=== PATIENT | female | born 2000 | race Caucasian/White ===

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

== ENCOUNTER 2022-01-06 15:16 | Outpatient (CLI) | payer OTHER, SELFPAY ==
[2022-01-06 16:29] LABS: Alanine Aminotransferase 25 U/L (14-59); Albumin Level 3.8 g/dL (3.4-5.0); Alkaline Phosphatase 119 U/L (50-130); Anion Gap 5 mmol/L (8-16); Aspartate Amino Transferase 19 U/L (15-37); Bilirubin,Total 0.2 mg/dL (0.00-1.00); Blood Urea Nitrogen 12 mg/dL (7-18); Carbon Dioxide 28 mmol/L (21-32); Chloride 104 mmol/L (98-108); Estimated Glomerular Filt Rate > 60; Free T4 Free Thyroxine 1.02 ng/dL (0.76-1.46); Glucose 86 mg/dL (70-99); Osmolality Calculated 282 mOsm/kg (285-295); Potassium 4.2 mmol/L (3.5-5.1); Sodium 137 mmol/L (136-145); Total Protein 7.5 g/dL (6.4-8.2)
== END 2022-01-06 15:17 | disposition home or self-care (01) ==
LOC: CHSLAB 15:18
PROVIDERS: PCP Nurse Practitioner Family; Visit Provider Nurse Practitioner Family
DX: R63.5 Abnormal weight gain (principal)
CPT/HCPCS: 36415; 80053; 84439; 84443

== ENCOUNTER 2023-04-26 17:51 | Emergency (ER) | payer OTHER, SELFPAY ==
[2023-04-26 18:03] VITALS: BP 106/87; PULSE 115; RESP 24; TEMP 36.4; O2SAT 100
[2023-04-26] MEDS: ONDANSETRON HCL ODT 4 MG TABLET SUBLINGUAL (18:37)
--- NOTE | 2023-04-26 18:38 | ED.GENADULT ---
HPI - General Adult General Chief complaint: Abdominal Pain Stated complaint: Sore throat, vomiting, abdominal pain Time Seen by Provider: 04/26/23 18:19 Source: patient Mode of arrival: ambulatory Limitations: no limitations History of Present Illness HPI narrative: Patient presents today complaining of sore throat, headache, ear pain, congestion, fever, diarrhea. States symptoms began last week, resolved, then worsened again a few days ago. She also reports abdominal pain 5 days ago that has been constant since onset and is worse when she is sitting. Vomiting started last night. States she has vomited more times than she can count and has vomited up, ?clots of blood. ? She currently rates her pain 9/10 and has been taking Tylenol with some relief. Patient was exposed to strep throat last week and started amoxicillin without a positive test. She has had 2 doses so far and states no improvement in her sore throat symptoms. Related Data Allergies Allergy/AdvReac Type Severity Reaction Status Date / Time carrot Allergy Swelling Verified 03/30/23 11:23 of Lip/Tongue/Throat Review of Systems Review of Systems: CONSTITUTIONAL: Denies body aches, chills, or sweats.+ fever EYES: Denies visual changes, redness, or discharge. ENT: Denies rhinorrhea. + congestion, sore throat, ear pain CARDIOVASCULAR: Denies chest pain, palpitations, or edema. RESPIRATORY: Denies cough or dyspnea. GASTROINTESTINAL: + abdominal pain, nausea, vomiting, diarrhea GENITOURINARY: Denies dysuria or hematuria. SKIN: Denies rash, itching, or wounds. MUSCULOSKELETAL: Denies back pain, joint pain, or myalgia. NEUROLOGIC: Denies numbness, tingling, or weakness.+ headache PSYCH: Denies depression or anxiety. [facility] Past Medical History Medical History ADHD (attention deficit hyperactivity disorder) Depression (Unknown) HARRIET (generalized anxiety disorder) Sprain and strain of wrist Surgical History Surgical History S/P laparoscopic appendectomy Social History Social History Smoking status: Never smoker Alcohol intake: never Substance use: never Substance use type: does not use Living arrangements: with family Gender identity (if verbalized by the patient): Female Spiritual care concerns: No Comments At time of signature, I have reviewed and agree with nursing past medical, surgical, social and family history unless otherwise noted. Please see nursing chart for further information. There is no relevant family history pertinent to the presenting complaint Exam Narrative: GENERAL: Mildly ill-appearing, well-nourished, and in no acute distress. HEAD: Normocephalic, atraumatic. EYES: EOMI. No redness or drainage. Conjunctivae normal. ENT: Mucous membranes pink and moist. Nares clear. No rhinorrhea. TMs normal bilaterally. Throat 1 to 2+ with white exudate. Uvula midline. NECK: Normal AROM. Supple. No lymphadenopathy. CHEST: Clear to auscultation. Tachypneic. HEART: Regular rhythm. Tachycardia. no murmur appreciated. ABDOMEN: Soft, nondistended, normal active bowel sounds. + tenderness to right upper quadrant. EXTREMITIES: Normal range of motion. No edema. SKIN: Warm, dry, no rash. Capillary refill normal. Normal skin turgor. NEURO: No focal deficits. Alert and oriented x3. Gait steady. PSYCH: Normal affect. No signs of depression or anxiety. Course Course Level of Care: Express Care Visit Vital Signs Vital signs: Vital Signs Temperature 97.6 F 04/26/23 18:03 Pulse Rate 115 H 04/26/23 18:03 Respiratory Rate 24 H 04/26/23 18:03 Blood Pressure 106/87 04/26/23 18:03 Pulse Oximetry 100 04/26/23 18:03 Oxygen Delivery Room Air 04/26/23 18:03 Temperature 97.6 F 04/26/23 18:03 Pulse Rate 115 H 02
== END 2023-04-26 18:39 | disposition short-term general hospital (02) ==
PROVIDERS: Emergency Provider Nurse Practitioner; PCP Nurse Practitioner Family
DX: R10.11 Right upper quadrant pain (principal); R11.2 Nausea with vomiting, unspecified
CPT/HCPCS: 99213; A9270; G0463

== ENCOUNTER 2023-04-26 18:57 | Emergency (ER) | payer OTHER, SELFPAY ==
--- NOTE | ~2023-04-26 | CT_ITS ---
CT of the Abdomen and Pelvis: Indication: Abdominal pain Technique: 2.5 mm axial scans were obtained through the abdomen and pelvis following intravenous adm inistration of 100 cc of Omnipaque 350. Dose reduction technique was used on this scan by utilizing a utomated exposure control and iterative reconstruction technique. The dose-length product (DLP) was 3 14.53 mGy-cm. COMPARISON: 04/21/2020 Findings: Scans through the lung bases are unremarkable. The liver, spleen, pancreas, gallbladder, adrenals and right kidney are within normal limits. 1.3 cm mass of the left kidney is increased in size from prior exam (axial image 47). No evidence of aortic aneurysm. No lymphadenopathy. No bowel obstruction or bowel wall thickening. There is no evidence to suggest acute appendicitis. Images through the pelvis were performed. Urinary bladder unremarkable. No adnexal mass seen. No asci emmanuel. Impression: 1.3 cm noncystic left renal masses increase in size from prior exam. Small renal cell carcinoma is no t excluded. Recommend pre and postcontrast MR, or possibly ultrasound, to distinguish between solid l esion and complex cyst. Reviewed, dictated and finalized at [facility]. 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 Small brandin l cell carcinoma is not excluded. Recommend pre and postcontrast MR, or possibl y ultrasound, to distinguish between solid lesion and complex cyst.
[2023-04-26 19:14] VITALS: BP 112/64; PULSE 80; RESP 15; TEMP 36.4; O2SAT 100
[2023-04-26 20:31] LABS: Appearance Urine Clear (Clear); Bacteria Urine None Seen /hpf; Bilirubin Urine Negative (Negative); Blood Urine 2+ (Negative); Color Urine Yellow (Yellow); Glucose Urine UA Negative (Negative); Ketones Urine 1+ mg/dL (Negative); Leukocyte Esterase Ur Negative LEU/UL (Negative); Nitrate Urine Negative (Negative); Non Pathogenic Casts 0-2; Protein Urine Negative (Negative); Specific Grav Ur 1.016 (1.001-1.035); Squamous Epithelial Cell Urine Few /hpf (Few); Urobilinogen Urine 0.2 mg/dL (<2.0); WBC Urine 0-5 /hpf
[2023-04-26 20:40] LABS: Add Urine Microscopic? YES
[2023-04-26 22:36] LABS: Basophils Percent Auto 0.3 % (0.2-1.2); Eosinophils Percent Auto 0.4 % (0-4.4); Hematocrit 35.4 % (37.0-47.0); Hemoglobin 11.6 g/dL (12.0-15.0); Immature Granulocyte Absolute 0.02 K/mm3 (0.00-0.031); Immature Granulocyte Percent A 0.3 % (0-0.5); Lymphocytes Absolute Auto 1.36 K/mm3 (0.9-3.2); Lymphocytes Percent Auto 17.8 % (18.3-44.2); Mean Corpuscular HGB Conc 32.8 g/dl (32-36); Mean Corpuscular Hemoglobin 28.9 pg (26-34); Mean Corpuscular Volume 88.1 fl (80-100); Mean Platelet Volume 9.1 fl (7.4-10.4); Monocytes Absolute Auto 0.4 K/mm3 (0.1-0.6); Monocytes Percent Auto 4.6 % (2.6-8.5); Neutrophils Absolute Auto 5.9 K/mm3 (1.3-6.7); Neutrophils Percent Auto 76.6 % (45.5-73.1); Platelet Count Result 232 k/mm3 (150-375); Red Blood Count 4.02 M/mm3 (4.2-5.4); Red Cell Distribution Width 12.8 % (11.5-14.5); White Blood Count 7.6 K/mm3 (4.5-10.0)
--- NOTE | 2023-04-26 22:42 | ECG_ITS ---
Measurements Intervals [place] Rate: 67 P: 71 CA: 191 QRS: 83 QRSD: 94 T: 64 QT: 386 QTc: 409 Interpretive Statements SINUS RHYTHM NO PREVIOUS ECG AVAILABLE FOR COMPARISON Electronically Signed On 04-27-2023 12:38:22 [employer] by Fernando Arango M.D.
--- NOTE | 2023-04-26 22:44 | ED.ABDPAIN ---
HPI - Abdominal Pain General Chief Complaint: Abdominal Pain Stated Complaint: RUQ pain, vomitting Time Seen by Provider: 04/26/23 21:59 Source: patient and family Limitations: no limitations History of Present Illness HPI narrative: Patient is a 22-year-old female presents to the emergency department complaining abdominal pain. Patient states the pain started Monday evening in the epigastric region and then Monday evening she to be on both of her upper quadrants and show her to have back is well, patient notes that the pain comes and goes, comes on with movement and is better with rest, describes the pain as squeezing, denies any stress in the past, admits to associated nausea starting yesterday and had a couple episodes of nonbloody nonbilious emesis this morning. Patient denies diarrhea. Patient denies sick contacts. Patient denies fever, chest pain, difficulty breathing, recent injuries, dysuria, hematuria, urinary frequency, urinary urgency, history kidney stones, rash, numbness, weakness. Patient admits to a recent sore throat approximately 1 week ago and affect she may have infection and was started on amoxicillin she has had 4 doses in total but did not have any testing done and was having some body aches with that as well. Patient's her last menstrual period is currently. Patient admits to a surgical history of an appendectomy. Patient denies history of Gastroenterology evaluation. Related Data Allergies Allergy/AdvReac Type Severity Reaction Status Date / Time carrot Allergy Swelling Verified 04/26/23 19:24 of Lip/Tongue/Throat Review of Systems Review of Systems: A 10 system review of systems was completed on the patient and is negative except for what is stated in the HPI. Nursing and ancillary documentation was reviewed. [facility] Past Medical History Medical History ADHD (attention deficit hyperactivity disorder) Depression (Unknown) HARRIET (generalized anxiety disorder) Sprain and strain of wrist Surgical History Surgical History S/P laparoscopic appendectomy Social History Social History Smoking status: Never smoker Alcohol intake: never Substance use: never Substance use type: does not use Living arrangements: with family Gender identity (if verbalized by the patient): Female Spiritual care concerns: No Exam Narrative: CONST: No acute distress. Well nourished. HENMT: Head is normocephalic and atraumatic. Moist mucous membranes. Scant posterior oropharynx erythema. No tonsillar exudates. Uvula is midline. EYES: No conjunctival icterus, injection, or pallor. PERRL. NECK: No meningeal signs. No palpable cervical lymphadenopathy. RESP: Able to speak in full sentences. Normal respiratory effort. CTAB. CARDIO: Regular rate. Regular rhythm. 2+ DP and radial pulses bilaterally. GI: Nondistended. Soft. Mild tenderness to palpation in the epigastric and left upper quadrant and right upper quadrant. No rebound or guarding or rigidity. Positive Stearns sign. No palpable masses or hernias. : No CVA tenderness to palpation. SKIN: No rashes or lesions noted on exposed skin. NEURO: Oriented x3. Moves all extremities. No focal neurological deficits. EXTREM/MSK/BACK: No pedal edema. PSYCH: Normal affect. Course Vital Signs Vital signs: Vital Signs Temperature 97.6 F 04/26/23 19:14 Pulse Rate 80 04/26/23 19:14 Respiratory Rate 15 04/26/23 19:14 Blood Pressure 112/64 04/26/23 19:14 Pulse Oximetry 100 04/26/23 19:14 Oxygen Delivery Room Air 04/26/23 19:14 Temperature 97.6 F 04/26/23 19:14 Pulse Rate 90 04/27/23 01:27 Respiratory Rate 15 04/27/23 01:27 Blood Pressure 110/56 L 04/27/23 01:27 Pulse Oximetry 100 04/27/23 01:27 Oxygen Delivery Room Air
[2023-04-26] MEDS: FAMOTIDINE 20 MG/2 ML VIAL IV PUSH (23:01)
[2023-04-26] MEDS: SODIUM CHLORIDE 0.9% IV 1,000 ML 999 ML IV CONT (23:01)
[2023-04-26] MEDS: ONDANSETRON INJ 4 MG/2 ML VIAL IV PUSH (23:01)
[2023-04-26] MEDS: MORPHINE SULFATE (*CRX) 4 MG/ML INJ IV PUSH (23:02)
[2023-04-26 23:08] LABS: SPREG INTERNAL CONTROL Positive; Serum Qual hCG Negative
[2023-04-26 23:15] LABS: Monoscreen Negative (Negative); Negative Monotest Control Negative (Negative); Positive Monotest Control Positive (Positive); Troponin I < 0.012 ng/mL (0.000-0.034)
[2023-04-26 23:21] LABS: Lactic Acid Reflex 0.8 mmol/L (0.7-2.0)
[2023-04-26 23:29] LABS: Alanine Aminotransferase 16 U/L (6-35); Albumin Level 4.2 g/dL (3.5-5.1); Alkaline Phosphatase 71 U/L (38-126); Anion Gap 11 mmol/L (8-16); Aspartate Amino Transferase 21 U/L (14-36); Bilirubin,Total 0.6 mg/dL (0.2-1.3); Blood Urea Nitrogen 5 mg/dL (7-17); Calcium 9.5 mg/dL (8.4-10.2); Carbon Dioxide 20 mmol/L (22-30); Chloride 106 mmol/L (98-107); Estimated CRCL calculation 146 ml/min; Estimated Glomerular Filt Rate > 60; Glucose 98 mg/dL (65-110); Lipase 31 U/L (23-300); Potassium 3.4 mmol/L (3.4-5.0); Sodium 137 mmol/L (137-145)
[2023-04-26 23:30] LABS: Strep Group A RT-PCR NOT DETECTED (Negative)
[2023-04-26 23:41] LABS: Influenza A QL RT-PCR Negative (Negative); Influenza B QL RT-PCR Negative (Negative); RSV RNA, RT-PCR Negative (Negative); SARS-CoV-2 RNA PCR Negative (Negative)
[2023-04-27] MEDS: ACETAMINOPHEN 500 MG TABLET 1000 MG PO (01:26)
[2023-04-27 01:27] VITALS: BP 110/56; PULSE 90; RESP 15; O2SAT 100
[2023-04-27] MEDS: DICYCLOMINE HCL 10 MG CAPSULE 20 MG PO (01:59)
[2023-04-27 02:35] VITALS: BP 112/58; PULSE 72; RESP 16; O2SAT 100
== END 2023-04-27 02:36 | disposition home or self-care (01) ==
PROVIDERS: Emergency Medicine; Emergency Provider Student in an Organized Health Care Education/Training Program; PCP Nurse Practitioner Family
DX: K52.9 Noninfective gastroenteritis and colitis, unspecified (principal); Z20.822 Contact with and (suspected) exposure to COVID-19
CPT/HCPCS: 36415; 74177; 80053; 81001; 81025; 82248; 83605; 83690; 83735; 84484; 84703; 85025; 86140; 86308; 87637; 87651; 93005; 96361; 96374; 96375; 99213; 99284; A9270; G0463; J2270; J2405; J7030; Q9967

== ENCOUNTER 2023-06-21 12:54 | Outpatient (CLI) | payer OTHER, SELFPAY ==
[2023-06-21 13:07] LABS: Basophils Absolute Auto 0.02 K/mm3 (0.00-0.10); Basophils Percent Auto 0.3 % (0.0-1.0); Eosinophils Absolute Auto 0.16 K/mm3 (0.02-0.50); Eosinophils Percent Auto 2.5 % (1.0-6.0); Hematocrit 43.1 % (35.0-49.0); Immature Granulocyte Absolute 0.03 K/mm3 (0.00-0.00); Immature Granulocyte Percent A 0.5 % (0.0-0.0); Lymphocytes Absolute Auto 2.07 K/mm3 (1.10-4.50); Lymphocytes Percent Auto 32.6 % (18.0-42.0); Mean Corpuscular HGB Conc 32.5 g/dL (32-36); Mean Corpuscular Hemoglobin 28.7 pg (27.0-31.0); Mean Corpuscular Volume 88.3 fL (78.0-102.0); Mean Platelet Volume 8.6 fl (9.2-11.8); Monocytes Absolute Auto 0.32 K/mm3 (0.10-0.90); Neutrophils Absolute Auto 3.74 K/mm3 (1.70-7.20); Neutrophils Percent Auto 59.1 % (50.0-70.0); Platelet Count Result 288 K/mm3 (150-420); Red Blood Count 4.88 M/mm3 (4.20-5.40); Red Cell Distribution Width 12.4 % (11.6-14.4); White Blood Count 6.3 K/mm3 (4.8-10.8)
[2023-06-21 15:19] LABS: Iron 130 ug/dL (50-170); Percent Iron Saturation 31 % (12-57)
== END 2023-06-21 12:55 | disposition home or self-care (01) ==
PROVIDERS: PCP Nurse Practitioner Family; Visit Provider Nurse Practitioner Family
DX: R42 Dizziness and giddiness (principal)
CPT/HCPCS: 36415; 83540; 83550; 85025

== ENCOUNTER 2024-04-29 15:45 | Outpatient (CLI) | payer OTHER, SELFPAY ==
--- NOTE | ~2024-04-29 | XR_ITS ---
EXAM: XR wrist LT min 3V, XR forearm LT 2V DATE: 04/29/2024 16:01 HISTORY: S49.92XA - Unspecified injury of left shoulder and upper ... . COMPARISON: None available. FINDINGS: Normal mineralization. Transverse nondisplaced distal left radial fracture with dorsal cor tical buckling, 6 degrees dorsal angulation. No lytic or blastic lesion. Joint spaces are maintained. No erosion or periosteal change. Soft tissue swelling about the fracture site. IMPRESSION: Transverse nondisplaced distal left radial fracture with minimal dorsal angulation of 6 d egrees. Reviewed, dictated and finalized at location K. ARIST IMPRESSION: Transverse nondisplaced distal left radial fracture with minimal do rsal angulation of 6 degrees.
== END 2024-04-29 15:46 | disposition home or self-care (01) ==
PROVIDERS: PCP Nurse Practitioner Family; Visit Provider Nurse Practitioner Family
DX: S52.592A Other fractures of lower end of left radius, initial encounter for closed fracture (principal)
CPT/HCPCS: 73090; 73110

== ENCOUNTER 2024-06-14 10:26 | Outpatient (CLI) | payer OTHER, SELFPAY ==
[2024-06-14 11:05] LABS: Basophils Absolute Auto 0.03 K/mm3 (0.00-0.10); Basophils Percent Auto 0.3 % (0.0-1.0); Eosinophils Absolute Auto 0.09 K/mm3 (0.02-0.50); Eosinophils Percent Auto 0.8 % (1.0-6.0); Hematocrit 45.7 % (35.0-49.0); Hemoglobin 15.3 g/dL (12.0-15.0); Immature Granulocyte Absolute 0.06 K/mm3 (0.00-0.00); Immature Granulocyte Percent A 0.5 % (0.0-0.0); Lymphocytes Absolute Auto 4.02 K/mm3 (1.10-4.50); Lymphocytes Percent Auto 35.4 % (18.0-42.0); Mean Corpuscular HGB Conc 33.5 g/dL (32-36); Mean Corpuscular Hemoglobin 29.1 pg (27.0-31.0); Mean Corpuscular Volume 86.9 fL (78.0-102.0); Mean Platelet Volume 8.6 fl (9.2-11.8); Monocytes Absolute Auto 0.62 K/mm3 (0.10-0.90); Monocytes Percent Auto 5.5 % (2.0-11.0); Neutrophils Absolute Auto 6.55 K/mm3 (1.70-7.20); Neutrophils Percent Auto 57.5 % (50.0-70.0); Platelet Count Result 346 K/mm3 (150-420); Red Blood Count 5.26 M/mm3 (4.20-5.40); White Blood Count 11.4 K/mm3 (4.8-10.8)
[2024-06-14 11:21] LABS: Alanine Aminotransferase 15 U/L (14-59); Alkaline Phosphatase 109 U/L (46-116); Anion Gap 11 mmol/L (4-12); Aspartate Amino Transferase 11 U/L (15-37); Bilirubin,Total 0.4 mg/dL (0.00-1.00); Blood Urea Nitrogen 12 mg/dL (7-18); Carbon Dioxide 28 mmol/L (21-32); Chloride 102 mmol/L (98-108); Estimated Glomerular Filt Rate > 60; Glucose 89 mg/dL (70-99); Osmolality Calculated 290 mOsm/kg (285-295); Potassium 4.1 mmol/L (3.5-5.1); Sodium 141 mmol/L (136-145); Total Protein 7.9 g/dL (6.4-8.2)
[2024-06-14 11:25] LABS: Thyroid Stimulating Hormone Reflex 2.39 u/IU/mL (0.36-3.74)
[2024-06-21 15:32] LABS: Almond (F20) IgE 0.56 kU/L; Brazil Nut (f18) <0.10 kU/L; Brazil Nut (f18) Class 0; Cashew Nut (F202) IgE <0.10 kU/L; Cashew Nut (F202) IgE Class 0; Codfish (F3) IgE <0.10 kU/L; Codfish (F3) IgE Class 0; Cow's Milk (F2) IgE <0.10 kU/L; Cow's Milk (F2) IgE Class 0; Egg White (F1) IgE <0.10 kU/L; Egg White (F1) IgE Class 0; Hazelnut (F17) IgE 6.84 kU/L; Hazelnut (F17) IgE Class 3; Macadamia Nut (rf345) <0.10 kU/L; Macadamia Nut (rf345) Class 0; Peanut (F13) IgE 1.42 kU/L; Peanut (F13) IgE Class 2; Salmon (F41) IgE <0.10 kU/L; Salmon (F41) IgE Class 0; Scallop (F338) IgE <0.10 kU/L; Scallop (F338) IgE Class 0; Sesame Seed 0.19 kU/L; Shrimp (F24) IgE <0.10 kU/L; Soybean (F14) IgE 0.23 kU/L; Soybean (F14) IgE Class 0/1; Tuna (F40) <0.10 kU/L; Tuna (F40) Class 0; Walnut (F256) IgE <0.10 kU/L; Walnut (F256) IgE Class 0; Wheat (F4) IgE 0.12 kU/L; Wheat (F4) IgE Class 0/1
== END 2024-06-14 10:27 | disposition home or self-care (01) ==
LOC: CHSLAB 10:27
PROVIDERS: PCP Nurse Practitioner Family; Visit Provider Nurse Practitioner Family
DX: Z00.00 Encounter for general adult medical examination without abnormal findings (principal); L50.9 Urticaria, unspecified
CPT/HCPCS: 36415; 80053; 84443; 85025; 86003; 86038; 86039